=== PATIENT | male | born 1940 | race Caucasian/White ===

== ENCOUNTER 2018-08-01 06:38 | Emergency (ER) | payer MEDICARE ==
[~2018-08-01] VITALS: Ht 170.2 cm; Wt 72.6 kg
--- OUTSIDE RECORDS SUMMARY | 2018-08-01 06:41 | XMS REPORT | Clinical Summary ---
Author Author [facility] Organization [facility] Address Unknown Phone Unavailable Care Team Providers Care Tack Maker Name Role Phone Michael Sheehan MD PCP Allergies No Known Allergies Medications End Date Status Medication Sig Dispensed Refills Start Date Active olmesartan-hydrochlorothi 1 tablet 0 azide (BENICAR HCT) daily. 7 40-12.5 mg per tablet Active nisoldipine (SULAR) 30 MG 30 mg daily. 0 24 hr tablet 7 Active montelukast (SINGULAIR) as needed. 0 10 mg tablet 7 Active TOPROL XL 50 mg 24 hr 50 mg daily. 0 tablet 7 Active ezetimibe-simvastatin 1 tablet 0 (VYTORIN) 10-40 mg per nightly. 7 tablet Active eplerenone (INSPRA) 25 MG 25 mg every 0 tablet other day. 7 Active clopidogrel (PLAVIX) 75 Take 75 mg by 11 mg tablet mouth daily. 7 Active amIODarone (PACERONE) 200 200 mg every 0 MG tablet other day. 7 Active cholecalciferol, vitamin Take 5,000 0 D3, 5,000 unit tablet Units by mouth. Active VITAMIN B COMPLEX ORAL Take 1 tablet 0 by mouth. Active MULTIVIT-MIN/FA/LYCOPEN/L Take by 0 UTEIN (CENTRUM SILVER MEN mouth. ORAL) Active fexofenadine (TUNDE) Take 180 mg 0 180 MG tablet by mouth daily. 09/06/2017 aspirin (ECOTRIN) 81 MG Take 81 mg by 0 enteric coated tablet mouth daily. 7 Active Problems Problem Noted Date Non-recurrent inguinal hernia of right side without obstruction or gangrene 03/28/2017 Status post transcatheter aortic valve replacement (TAVR) using 03/28/2017 bioprosthesis Status post prostatectomy 03/28/2017 Essential hypertension, benign 03/28/2017 Hyperlipidemia 03/28/2017 History of prostate cancer 03/28/2017 Atrial fibrillation 03/28/2017 Family History Medical History Relation Name Comments Dementia Brother No Known Problems Daughter Heart disease Father No Known Problems Maternal Grandfather No Known Problems Maternal Grandmother Heart disease Mother No Known Problems Paternal Grandfather No Known Problems Paternal Grandmother No Known Problems Son Relation Name Status Comments Brother Daughter Alive Father Maternal Grandfather Maternal Grandmother Mother Paternal Grandfather Paternal Grandmother Son Alive Social History Date Tobacco Use Types Packs/Day Years Used Never Smoker Smokeless Tobacco: Never Used Alcohol Use Drinks/Week oz/Week Comments No Sex Assigned at Date Recorded Not on file Industry Job Start Date Occupation Not on file Not on file Not on file Travel End Travel History Travel Start No recent travel history available. Last Filed Vital Signs Not on file Plan of Treatment Health Maintenance Due Date Last Done Comments SHINGLES VACCINES (#1) 1988 65+ PNEUMOCOCCAL VACCINE 09/02/2003 (1 of 2 - PCV13) PNEUMOCOCCAL 09/02/2003 POLYSACCHARIDE VACCINE AGE 65 AND OVER INFLUENZA VACCINE 10/31/2018 Implants Device Identifier Shelf Expiration Date Model / Serial / Lot Implanted Type Area Manufactur er 10/30/2021 [id number] / / [id number] Mesh Hrnia Rpr Parietex Easegrip Surgical Right: Groin COVIDIEN [id number] 3d - [id number] Mesh or US Implanted: 04/13/2017 (Quantity not Tissue SURGICAL on file) Barrier Products Results Not on fileafter 07/31/2017 Insurance Payer Benefit Subscriber ID Type Phone Address Plan / Group HUMANA MEDICARE HUMANA xxxxxxxxx PPO MEDICARE PPO/PFFS/E [facility] Advance Directives Patient has advance care planning documents on file. For more information, pleamaury e contact: Jared Lewis [address] [place] [address]
--- OUTSIDE RECORDS SUMMARY | 2018-08-01 06:41 | XMS REPORT | Clinical Summary ---
Author Author [place] [employer] Organization [facility] [facility] Address Unknown Phone Unavailable Care Team Providers Care Podiatry Doctor Name Role Phone Michael Sheehan PCP Allergies No Known Allergies Medications End Date Status Medication Sig Dispensed Refills Start Date Active metoprolol (TOPROL-XL) 50 Take 50 mg by 0 MG 24 hr tablet mouth daily. Active olmesartan-hydrochlorothi Take 1 tablet 0 azide (BENICAR HCT) by mouth 40-12.5 mg per tablet daily. Active nisoldipine (SULAR) 30 MG Take 30 mg by 0 24 hr tablet mouth daily. Active amiodarone (PACERONE) 200 Take 200 mg 0 MG tablet by mouth every other day. Active eplerenone (INSPRA) 25 MG Take 25 mg by 0 tablet mouth every other day. Active ezetimibe-simvastatin Take 1 tablet 0 (VYTORIN) 10-40 mg per by mouth tablet nightly. Active multivitamin per tablet Take 1 tablet 0 by mouth daily. Active cholecalciferol, vitamin Take 5,000 0 D3, 5,000 unit Tab Units by mouth as needed Every now and then per patient. . Active b complex vitamins tablet Take 1 tablet 0 by mouth daily. 09/06/2017 aspirin 81 MG EC tablet Take 1 tablet 0 (81 mg total) 7 by mouth daily. 09/06/2017 clopidogrel (PLAVIX) 75 Take 1 tablet 30 tablet 11 mg tablet (75 mg total) 7 by mouth daily. Active Problems Problem Noted Date Aortic stenosis 09/05/2016 History of prostate cancer 2016 Overview: S/p resection HLD (hyperlipidemia) 2016 Valvular heart disease Overview: Severe Aortic stenosis Edema Overview: of left ankle Coronary artery disease Hypertension Arrhythmia Overview: PAF Syncope Encounters Care Team Description Date Type Specialty Mukesh Beth MD Aortic valve stenosis, etiology of cardiac valve disease unspecified 10/01/2017 Hospital Cardiology Encounter Mukesh Beth MD Aortic valve stenosis, etiology of cardiac valve disease unspecified (Primary Dx) 09/28/2017 Outside Orders Central Scheduling after 07/31/2017 Family History Medical History Relation Name Comments Dementia Brother Dementia Father Heart disease Father Hypertension Mother Relation Name Status Comments Brother Father Mother Social History Date Tobacco Use Types Packs/Day [...] Health Maintenance Due Date Last Done Comments INFLUENZA VACCINE 12/31/2017 Implants Device Identifier Shelf Expiration Date Model / Serial / Lot Implanted Type Area Manufactur er 08/30/2017 / / [id number] Manta 18f Vascular Closure Device Cardiovasc N/A: Groin Implanted: Qty: 1 on 09/05/2016 by Rick Luong MD [id number] 06/30/2018 [id number] / / [id number] Mynxgrip Vascular Closure Device Cardiovasc N/A: Groin Implanted: Qty: 1 on 09/05/2016 by Rick Luong MD [id number] 06/30/2018 [id number] / / [id number] Mynxgrip Vascular Closure Device Cardiovasc N/A: Groin Implanted: Qty: 1 on 09/05/2016 by Rick Luong MD 04/17/2017 [id number] / [id number] / Pericardial Tissue Heart Valve Valves N/A: Groin PARK Implanted: Qty: 1 on 09/05/2016 by Rick Michel MD ES Procedures Comments Procedure Name Priority Date/Time Associated Diagnosis ECHOCARDIOGRAM REPORT - 10/01/2017 SCAN 6:20 PM CDT 2D ECHO W/ DOPPLER Routine 10/01/2017 Aortic valve stenosis, (CW/PW/COLOR) 1:47 PM CDT etiology of cardiac valve disease unspecified after 07/31/2017 Results * ECHOCARDIOGRAM REPORT - SCAN (10/01/2017 6:20 PM CDT) Narrative Performed At * 2D Echo W/Doppler(CW/PW/Color) (10/01/2017 1:47 PM CDT) Ejection Fraction [facility] ECHO [facility]ARTLAB [facility] Specimen Narrative Performed At Transthoracic Echocardiography Report (TTE) [facility] ECHO [facility]ARTLAB Demographics [facility] Patient NameJEFFREY DAVE Date of Study10/01/2017 AL Gender Male Visit [id number] Race Unknown Number Number Date of 1940 Referring PhysicianKirit Mayorga MD Age 77 year(s) 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 Clinical History CAD, HLD, HTN, , HX OF CANCER, EDEMA L CATH (07/2016) TAVR 26MM PARK LUDMILA 3 (09/05/16) Height: 70 inches Weight: 80.29 kg (177 lbs) BSA: 1.98 m^2 BMI: 25.4 kg/m^2 HR: 51 bpm BP: 156/82 mmHg Summary Normal overall left ventricular systolic function. Degree of diastolic dysfunction (LAP assessment) is inconclusive due to arrhythmia . A percutaneous (TAVR) biologic AoV prosthesis is visualized . The prosthetic AoV appears well-seated with normal function by Doppler. AoV dimensionless obstructive index (DOI)) is 0.53 . Prosthetic AoV regurgitaton is mild . Prosthetic AR locations(s) are paravalvular at along posterior annulus. Estimated peak systolic PA pressure is 30-35 mmHg . No evidence of pericardial effusion. Previous Study Compared to the previous study there was no significant change. Signature Findings Left Ventricle Normal left ventricular chamber size. Normal wall thickness. Normal overall left ventricular systolic function. No apparent segmental wall motion abnormalities. Estimated LVEF by qualitative assessment is normal (55-60%) . Degree of diastolic dysfunction (LAP assessment) is inconclusive due to arrhythmia . Left AtriumLA size is mildly enlarged . Right VentricleNormal right ventricle structure and function. Right Atrium Normal right atrium. Aortic Valve A percutaneous (TAVR) biologic AoV prosthesis is visualized . The prosthetic AoV appears well-seated with normal function by Doppler. Prosthetic AoV regurgitaton is mild . Prosthetic AR locations(s) are paravalvular at along posterior annulus. AoV dimensionless obstructive index (DOI)) is 0.53 . Mitral Valve Mild MV leaflet thickening. Trace mitral regurgitation. Tricuspid ValveMild tricuspid regurgitation. Estimated peak systolic PA pressure is 30-35 mmHg . Pulmonic Valve Normal PV structure and function by limited views and Doppler. AortaAortic root size (SInus of Valsalva diameter) is normal . PericardiumNo evidence of pericardial effusion. IVC/SVC/PA/PV/PleuralThe estimated RA pressure by IVC dynamics 0-5mmHg . Chambers/Structures Left Atrium LA Dimension: 4.46 cm LA Area: 22.2 cm^2 LA Volume: 73.21 ml LA Vol. Index: 37 ml/m^2 Left Ventricle LVIDd: 4.35 cm LV Septum Diastolic: 1.04 cm LV PW Diastolic: 1.08 cm Aorta Ao Root S of Vidhi.: 2.81 cm Doppler/Quantitative Measurements Aortic Valve Peak Velocity: 2.52 m/sMean Velocity: 1.5 m/s Peak Gradient: 25.36 mmHgMean Gradient: 11.12 mmHg AV VTI: 52.57 cm AV DVI: 0.53 LVOT Peak Velocity: 1.06 m/s Peak Gradient: 4.48 mmHg Mean Velocity: 0.67 m/s Mean Gradient: 2.18 mmHg LVOT VTI: 27.71 cm Procedure Note Interface, External Ris In - 10/01/2017 5:46 PM CDT Transthoracic Echocardiography Report (TTE) Demographics Patient Name JEFFREY DAVE Date of Study 10/01/2017 AVTAR Gender Male Visit Number [id number] Race Unknown Room Number Number Date of 1940 Referring Physician Kirit Mayorga MD Age 77 year(s) Information Systems Supervisor Corinne Hagan [employer] 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 Clinical History CAD, HLD, HTN, , HX OF CANCER, EDEMA L CATH (07/2016) TAVR 26MM PARK LUDMILA 3 (09/05/16) Height: 70 inches Weight: 80.29 kg (177 lbs) BSA: 1.98 m^2 BMI: 25.4 kg/m^2 HR: 51 bpm BP: 156/82 mmHg Summary Normal overall left ventricular systolic function. Degree of diastolic dysfunction (LAP assessment) is inconclusive due to arrhythmia . A percutaneous (TAVR) biologic AoV prosthesis is visualized . The prosthetic AoV appears well-seated with normal function by Doppler. AoV dimensionless obstructive index (DOI)) is 0.53 . Prosthetic AoV regurgitaton is mild . Prosthetic AR locations(s) are paravalvular at along posterior annulus. Estimated peak systolic PA pressure is 30-35 mmHg . No evidence of pericardial effusion. Previous Study Compared to the previous study there was no significant change. Signature Findings Left Ventricle Normal left ventricular chamber size. Normal wall thickness. Normal overall left ventricular systolic function. No apparent segmental wall motion abnormalities. Estimated LVEF by qualitative assessment is normal (55-60%) . Degree of diastolic dysfunction (LAP assessment) is inconclusive due to arrhythmia . Left Atrium LA size is mildly enlarged . Right Ventricle Normal right ventricle structure and function. Right Atrium Normal right atrium. Aortic Valve A percutaneous (TAVR) biologic AoV prosthesis is visualized . The prosthetic AoV appears well-seated with normal function by Doppler. Prosthetic AoV regurgitaton is mild . Prosthetic AR locations(s) are paravalvular at along posterior annulus. AoV dimensionless obstructive index (DOI)) is 0.53 . Mitral Valve Mild MV leaflet thickening. Trace mitral regurgitation. Tricuspid Valve Mild tricuspid regurgitation. Estimated peak systolic PA pressure is 30-35 mmHg . Pulmonic Valve Normal PV structure and function by limited views and Doppler. Aorta Aortic root size (SInus of Valsalva diameter) is normal . Pericardium No evidence of pericardial effusion. IVC/SVC/PA/PV/Pleural The estimated RA pressure by IVC dynamics 0-5mmHg . Chambers/Structures Left Atrium LA Dimension: 4.46 cm LA Area: 22.2 cm^2 LA Volume: 73.21 ml LA Vol. Index: 37 ml/m^2 Left Ventricle LVIDd: 4.35 cm LV Septum Diastolic: 1.04 cm LV PW Diastolic: 1.08 cm Aorta Ao Root S of Vidhi.: 2.81 cm Doppler/Quantitative Measurements Aortic Valve Peak Velocity: 2.52 m/s Mean Velocity: 1.5 m/s Peak Gradient: 25.36 mmHg Mean Gradient: 11.12 mmHg AV VTI: 52.57 cm AV DVI: 0.53 LVOT Peak Velocity: 1.06 m/s Peak Gradient: 4.48 mmHg Mean Velocity: 0.67 m/s Mean Gradient: 2.18 mmHg LVOT VTI: 27.71 cm Performing Organization Address City/State/Zipcode Phone Number [place] [employer] [facility] after 07/31/2017 Insurance Payer Benefit Subscriber ID Type Phone Address Plan / Group HUMANA - MEDICARE MGD HUMANA xxxxxxxxx [facility] MEDICARE Contracted ADV Advance Directives For more information, please contact: [address] [address] Date Inactivated Comments Code Status Date Activated 09/06/2016 1:45 PM Full Code 09/05/2016 5:49 AM This code status was determined by: Patient
--- OUTSIDE RECORDS SUMMARY | 2018-08-01 06:41 | XMS REPORT ---
Author Author [facility] Address Unknown Phone Unavailable Care Team Providers Care Engineering Operator Name Role Phone ANDRE ARANDA Unavailable Unavailable Problems This patient has no known problems. Allergies, Adverse Reactions, Alerts This patient has no known allergies or adverse reactions. Medications This patient has no known medications. Results Test Description Test Time Test Comments Text Results Atomic Results Result Comments MAGNESIUM 2016-09-06 05:23:00 MAGNESIUM (BEAKER) (test apzh=672) 2.1 mg/dL 1.6-2.6 BASIC METABOLIC [id number] 05:23:00* Test Item Value Reference Range Comments SODIUM (BEAKER) (test zfta=840) 140 meq/L 136-145 POTASSIUM (BEAKER) (test smsi=405) 3.9 meq/L 3.5-5.1 CHLORIDE (BEAKER) (test drcz=993) 107 meq/L 98-107 CO2 (BEAKER) (test smij=351) 24 meq/L 22-29 BLOOD UREA NITROGEN (BEAKER) (test dqbr=609) 16 mg/dL 7-21 CREATININE (BEAKER) (test vshd=120) 0.87 mg/dL 0.57-1.25 GLUCOSE RANDOM (BEAKER) (test ngdo=067) 101 mg/dL 70-105 CALCIUM (BEAKER) (test phoz=717) 8.6 mg/dL 8.4-10.2 EGFR (BEAKER) (test rlva=0929) 85 mL/min/1.73 sq m ESTIMATED GFR IS NOT ACCURATE CREATININE CLEARANCE IN PREDICTING GLOMERULAR FILTRATION RATE. ESTIMATED GFR IS NOT APPLICABLE FOR DIALYSIS PATIENTS. CBC W/PLT COUNT & AUTO [id number] 05:19:00* Test Item Value Reference Range Comments WHITE BLOOD CELL COUNT (BEAKER) (test mtvp=468) 9.6 K/ L 4.0-10.0 RED BLOOD CELL COUNT (BEAKER) (test akfa=861) 4.63 M/ L 4.20-5.80 HEMOGLOBIN (BEAKER) (test ffww=355) 14.3 GM/DL 13.0-16.8 HEMATOCRIT (BEAKER) (test cjde=643) 43.5 % 40.0-50.0 MEAN CORPUSCULAR VOLUME (BEAKER) (test cbds=817) 94.1 fL 82.0-98.0 MEAN CORPUSCULAR HEMOGLOBIN (BEAKER) (test wmqt=501) 30.9 pg 27.0-33.0 MEAN CORPUSCULAR HEMOGLOBIN CONC (BEAKER) (test avbe=238) 32.8 GM/DL 32.0-36.0 RED CELL DISTRIBUTION WIDTH (BEAKER) (test ciqz=505) 11.6 % 10.3-14.2 PLATELET COUNT (BEAKER) (test fafq=682) 163 K/CU MM 150-430 MEAN PLATELET VOLUME (BEAKER) (test ichg=819) 7.0 fL 6.5-10.5 NUCLEATED RED BLOOD CELLS (BEAKER) (test fqqi=960) 0 /100 WBC 0-0 NEUTROPHILS RELATIVE PERCENT (BEAKER) (test okwn=358) 72 % LYMPHOCYTES RELATIVE PERCENT (BEAKER) (test pgge=380) 15 % MONOCYTES RELATIVE PERCENT (BEAKER) (test xlmj=673) 11 % EOSINOPHILS RELATIVE PERCENT (BEAKER) (test iemg=596) 2 % BASOPHILS RELATIVE PERCENT (BEAKER) (test xncq=297) 1 % NEUTROPHILS ABSOLUTE COUNT (BEAKER) (test rlbn=272) 6.88 K/ L 1.80-8.00 LYMPHOCYTES ABSOLUTE COUNT (BEAKER) (test iwsv=934) 1.42 K/ L 1.48-4.50 MONOCYTES ABSOLUTE COUNT (BEAKER) (test fdpe=784) 1.05 K/ L 0.00-1.30 EOSINOPHILS ABSOLUTE COUNT (BEAKER) (test whkg=457) 0.17 K/ L 0.00-0.50 BASOPHILS ABSOLUTE COUNT (BEAKER) (test vkhv=722) 0.05 K/ L 0.00-0.20 [id number] 09:18:00* Test Item Value Reference Range Comments ACTIVATED CLOTTING TIME (BEAKER) (test hwhs=331) [address] [facility] [address] [address] [id number] 08:54:00* Test Item Value Reference Range Comments ACTIVATED CLOTTING TIME (BEAKER) (test jgmo=268) [address] [facility] [address] [facility] [address] BASIC METABOLIC [id number] 13:46:00* Test Item Value Reference Range Comments SODIUM (BEAKER) (test kavy=702) 141 meq/L 136-145 POTASSIUM (BEAKER) (test fqpd=374) 4.2 meq/L 3.5-5.1 CHLORIDE (BEAKER) (test jeop=641) 105 meq/L 98-107 CO2 (BEAKER) (test hziv=385) 28 meq/L 22-29 BLOOD UREA NITROGEN (BEAKER) (test vrvt=811) 19 mg/dL 7-21 CREATININE (BEAKER) (test monf=545) 1.06 mg/dL 0.57-1.25 GLUCOSE RANDOM (BEAKER) (test irki=773) 82 mg/dL 70-105 CALCIUM (BEAKER) (test gksd=741) 9.3 mg/dL 8.4-10.2 EGFR (BEAKER) (test buap=7495) 68 mL/min/1.73 sq m ESTIMATED GFR IS NOT ACCURATE CREATININE CLEARANCE IN PREDICTING GLOMERULAR FILTRATION RATE. ESTIMATED GFR IS NOT APPLICABLE FOR DIALYSIS PATIENTS. [id number] 13:46:00* Test Item Value Reference Range Comments ALBUMIN (BEAKER) (test pkqc=6104) 4.2 g/dL 3.5-5.0 B-TYPE NATRIURETIC FACTOR (BNP)2016-09-04 13:39:00* Test Item Value Reference Range Comments B-TYPE NATRIURETIC PEPTIDE (BEAKER) (test xlbf=327) 94 pg/mL 0-100 [id number] 13:22:00* Test Item Value Reference Range Comments PARTIAL THROMBOPLASTIN TIME (BEAKER) (test aadn=582) 32.5 seconds 22.5-36.0 PROTHROMBIN [id number] 13:21:00* Test Item Value Reference Range Comments PROTIME (BEAKER) (test lkjs=939) 13.8 seconds 11.7-14.7 INR (BEAKER) (test pshb=334) 1.1 <=5.9 RECOMMENDED COUMADIN/WARFARIN INR THERAPY RANGESSTANDARD DOSE: 2.0 - 3.0 Inclu karly: PROPHYLAXIS for venous thrombosis, systemic embolization; TREATMENT for haider ous thrombosis and/or pulmonary embolus.HIGH RISK: Target INR is 2.5-3.5 for pat ients with mechanical heart valves.CBC W/PLT COUNT & AUTO [id number] 13:07:00* Test Item Value Reference Range Comments WHITE BLOOD CELL COUNT (BEAKER) (test jtvz=923) 8.7 K/ L 4.0-10.0 RED BLOOD CELL COUNT (BEAKER) (test advq=417) 4.98 M/ L 4.20-5.80 HEMOGLOBIN (BEAKER) (test fazv=037) 15.6 GM/DL 13.0-16.8 HEMATOCRIT (BEAKER) (test ysml=036) 46.8 % 40.0-50.0 MEAN CORPUSCULAR VOLUME (BEAKER) (test xwla=621) 94.1 fL 82.0-98.0 MEAN CORPUSCULAR HEMOGLOBIN (BEAKER) (test hhse=019) 31.4 pg 27.0-33.0 MEAN CORPUSCULAR HEMOGLOBIN CONC (BEAKER) (test txmh=820) 33.4 GM/DL 32.0-36.0 RED CELL DISTRIBUTION WIDTH (BEAKER) (test dxlz=685) 11.5 % 10.3-14.2 PLATELET COUNT (BEAKER) (test glru=092) 225 K/CU MM 150-430 MEAN PLATELET VOLUME (BEAKER) (test hocp=661) 7.1 fL 6.5-10.5 NUCLEATED RED BLOOD CELLS (BEAKER) (test rfqj=414) 0 /100 WBC 0-0 NEUTROPHILS RELATIVE PERCENT (BEAKER) (test tqog=338) 75 % LYMPHOCYTES RELATIVE PERCENT (BEAKER) (test jbwj=622) 16 % MONOCYTES RELATIVE PERCENT (BEAKER) (test xzod=357) 8 % EOSINOPHILS RELATIVE PERCENT (BEAKER) (test bvcy=303) 1 % BASOPHILS RELATIVE PERCENT (BEAKER) (test ehgf=033) 0 % NEUTROPHILS ABSOLUTE COUNT (BEAKER) (test cyqe=344) 6.54 K/ L 1.80-8.00 LYMPHOCYTES ABSOLUTE COUNT (BEAKER) (test lkpc=950) 1.37 K/ L 1.48-4.50 MONOCYTES ABSOLUTE COUNT (BEAKER) (test aeds=105) 0.67 K/ L 0.00-1.30 EOSINOPHILS ABSOLUTE COUNT (BEAKER) (test xhbf=879) 0.10 K/ L 0.00-0.50 BASOPHILS ABSOLUTE COUNT (FOZIA) (test vfkj=278) 0.01 K/ L 0.00-0.20 [id number] 20:57:00* Test Item Value Reference Range Comments POC-CREATININE (FOZIA) (test oaaw=3129) 1.1 mg/dL 0.6-1.[address] [facility] [address] [address] POC-EGFR (FOZIA) (test ftri=3858) 65 mL/min/1.73M2
[2018-08-01] MEDS ORDERED: ONDANSETRON HCL INJ 2MG/ML 2ML 2 MG/ML VIAL IV STA (07:07)
[2018-08-01] MEDS ORDERED: KETOROLAC TROMETHAMINE 30 MG/ML VIAL IV STA (07:07)
[2018-08-01 07:20] LABS: BASOPHILS % 0.2 % (0.0-1.0); EOSINOPHILS % 0.1 % (0.0-6.0); HEMOGLOBIN 16.7 g/dL (14.0-18.0); LYMPHOCYTES # (AUTO) 1.1 (1.0-3.2); LYMPHOCYTES % 8.7 % (18.0-39.1); MEAN CORPUSCULAR HEMOGLOBIN 31.3 pg (28-32); MEAN CORPUSCULAR HGB CONC 34.8 g/dL (31-35); MEAN CORPUSCULAR VOLUME 90.1 fL (81-99); MONOCYTES # (AUTO) 0.6 (0.2-0.8); MONOCYTES % 4.4 % (4.4-11.3); NEUTROPHILS % 86.2 % (38.7-80.0); PLATELET COUNT 214 x10e3/uL (140-360); RED BLOOD COUNT 5.33 x10e6/uL (4.3-5.7); RED CELL DISTRIBUTION WIDTH 12.2 % (11.7-14.4)
[2018-08-01 07:32] LABS: BILIRUBIN,URINE NEGATIVE (NEGATIVE); CLARITY,URINE SL CLOUDY (CLEAR); COLOR,URINE YELLOW (YELLOW); KETONES,URINE NEGATIVE (NEGATIVE); LEUKOCYTE ESTERASE ,URINE NEGATIVE (NEGATIVE); NITRITE,URINE NEGATIVE (NEGATIVE); PROTEIN,URINE DIPSTICK NEGATIVE (NEGATIVE); URINE UROBILINOGEN 0.2 mg/dL (0.2 - 1)
[2018-08-01 07:39] LABS: ALBUMIN 4.6 g/dL (3.5-5.0); ALBUMIN/GLOBULIN RATIO 1.5 (0.8-2.0); ANION GAP 14.1 mmol/L (8-16); CALCIUM 10.2 mg/dL (8.4-10.2); CREATININE, SERUM 1.34 mg/dL (0.72-1.25); POTASSIUM 4.1 mmol/L (3.5-5.1)
[2018-08-01 07:45] LABS: EPITHELIAL CELLS,URINE RARE /LPF
[2018-08-01] MEDS ORDERED: SODIUM CHLORIDE 0.9% 1000ML 1,000 ML IV ONE (08:15)
--- NOTE | 2018-08-01 08:20 | Diagnostic Imaging Report ---
EXAMINATION: CT of the abdomen and pelvis without contrast. TECHNIQUE: Spiral CT images of the abdomen and pelvis were performed from the lung bases to the lesser trochanters. No intravenous contrast was given per renal stone protocol. Coronal and sagittal reformatted images were obtained. Technique manipulation was accomplished to maintain the lowest dose possible to the patient. DLP: 432.18 mGy-cm COMPARISON: None. CLINICAL HISTORY:Right flank pain DISCUSSION: ABSENCE OF INTRAVENOUS CONTRAST DECREASES SENSITIVITY FOR DETECTION OF FOCAL LESIONS AND VASCULAR PATHOLOGY. ABDOMEN/PELVIS: LOWER THORAX: Aortic valve prosthesis. HEPATOBILIARY:No focal hepatic lesions. No biliary ductal dilation. There are multiple gallstones present. SPLEEN: No splenomegaly. PANCREAS: No focal masses or ductal dilatation. ADRENALS: No adrenal nodules. KIDNEYS/URETERS: There is mild-moderate right hydronephrosis. At least 4 stones within the right kidney with the largest measuring 3.9 mm. Distal right ureteral stone at the UVJ measures 4-5 mm. Fluid stranding around the right kidney and lateral paracolic gutter extending into the right pelvis. PELVIC ORGANS/BLADDER: The bladder is normal. PERITONEUM/RETROPERITONEUM: No free air or fluid. Multiple surgical clips in the pelvis. LYMPH NODES: No intra-abdominal,retroperitoneal, pelvic or inguinal lymphadenopathy. VESSELS: Atherosclerotic vascular calcification. GI TRACT: No distention or wall thickening. BONES AND SOFT TISSUES: No bony destructive lesions. Degenerative changes of the spine. Bone island of L1. Hernia mesh in the left groin. IMPRESSION: 1. Mild-moderate right hydroureteronephrosis caused by a distal right ureteral stone. 2. Multiple small nonobstructing stones in the right kidney. 3. Cholelithiasis without gallbladder wall thickening or biliary dilatation. Signed by: Dr. Santiago Junior DO on 08/01/2018 8:17 AM
== END 2018-08-01 08:46 | disposition home or self-care (01) ==
LOC: ER 06:38
DX: N13.2 Hydronephrosis with renal and ureteral calculous obstruction (principal)
CPT/HCPCS: 36415; 74176; 80053; 81001; 85025; 99284; J1885; J2405

== ENCOUNTER → 2020-02-09 | Outpatient (CLI) | payer MEDICARE | LOC: RAD 11:10 | PROVIDERS: ATTEND Internal Medicine | DX: Z01.810 Encounter for preprocedural cardiovascular examination (principal) | CPT/HCPCS: 71046 ==